=== PATIENT | female | born 1975 ===

== ENCOUNTER 2017-03-21 09:55 | Outpatient (CLI) | payer OTHER ==
--- NOTE | 2017-03-21 14:36 | Mammography Report ---
BILATERAL DIGITAL SCREENING MAMMOGRAM with CAD : 03/21/17 09:55:00 CLINICAL: Routine screening. COMPARISON:02/15/16 FINDINGS: The breasts are heterogeneously dense, which may obscure small masses. No mass, architectural distortion or suspicious calcifications. IMPRESSION: No mammographic evidence of malignancy. BI-RADS CATEGORY: 2 -- Benign RECOMMENDATION: Routine mammographic screening in one year. COMMENT: Patient follow-up letters are generated by our [employer] application.
== END 2017-03-21 09:56 | disposition home or self-care (01) ==
LOC: SPVWC 09:55
PROVIDERS: ATTEND Family Medicine
DX: Z12.31 Encounter for screening mammogram for malignant neoplasm of breast (principal)
CPT/HCPCS: 77067; G0202

== ENCOUNTER 2017-07-26 09:06 | Outpatient (CLI) | payer OTHER ==
--- NOTE | 2017-07-26 13:30 | Ultrasound Report ---
TRANSABDOMINAL AND TRANSVAGINAL PELVIC ULTRASOUND: 07/26/17 09:06:00 CLINICAL: Pelvic pain and dysmenorrhea. FINDINGS: Transabdominal and transvaginal pelvic ultrasound demonstrated a normal size uterus with normal contour and overall echogenicity. The uterus measures 9.5 x 3.4 x 6.3 cm. No uterine fibroid or mass. A 5 mm left myometrial cyst in the uterine body. Normal proliferative endometrium measuring 6.0 mm AP thickness. Normal ovaries. The right ovary measures 3.8 x 2.4 x 4.1cm. The left ovary measures 3.7 x 2.0 x 2.8cm. No adnexal mass. No free fluid. Normal urinary bladder. IMPRESSION: A 5 mm left myometrial cyst but otherwise normal exam. No other signs to suggest uterine adenomyosis.
--- NOTE | 2017-07-26 13:43 | Ultrasound Report ---
ABDOMINAL ULTRASOUND: 07/26/17 09:06:00 CLINICAL: Abdominal pain. FINDINGS: High-resolution ultrasound demonstrated a normal size liver with normal contour and echogenicity. No liver mass. Normal hepatic vasculature and inferior vena cava. Normal gallbladder and bile ducts. The gallbladder wall measures 2.0 mm thick. The common bile duct measures 6.0 mm diameter. The pancreas was well imaged and normal. Normal abdominal aorta. A normal spleen measures 9.5cm. normal size kidneys with normal renal contours and echogenicity. The right kidney measures 11.5 x 3.6 x 5.5cm. Mild dilatation of the right renal collecting system and proximal ureter. However, no ureteral calculus is identified. The left kidney measures 11.2 x 4.8 x 4.1cm. Normal nondilated left renal collecting system nd ureter. No renal mass or calculus. No ascites or mass. IMPRESSION: Mild dilatation of the right renal collecting system and proximal ureter with an uncertain etiology. The rest of the study is normal.
== END 2017-07-26 09:07 | disposition home or self-care (01) ==
LOC: SPVWC 09:06
PROVIDERS: ATTEND Family Medicine
DX: N85.8 Other specified noninflammatory disorders of uterus (principal); N28.82 Megaloureter; R10.9 Unspecified abdominal pain; R11.0 Nausea
CPT/HCPCS: 76700; 76830; 76856

== ENCOUNTER 2019-08-12 11:01 | Outpatient (CLI) | payer OTHER ==
--- NOTE | 2019-08-12 15:29 | Mammography Report ---
DIGITAL SCREENING MAMMOGRAM WITH CAD, 08/12/2019 INDICATION: Routine screening mammography. TECHNIQUE: Digital bilateral 2D mammography was obtained in the craniocaudal and mediolateral obliq ue projections. This examination was interpreted with the benefit of Computer-Aided Detection analysi s. COMPARISON: 07/01/2018 FINDINGS: Breast Density: The breasts are heterogeneously dense, which may obscure small masses. There is no evidence of dominant mass, suspicious calcifications or architectural distortion in eithe r breast. Scattered bilateral benign calcifications. IMPRESSION: No mammographic evidence of malignancy. Follow up recommendation: Routine yearly BI-RADS Category 2: Benign. A "normal" or negative report should not discourage follow up or biopsy of a clinically significant f inding. A written summary of these findings will be mailed to the patient. The patient will be entered into a mammography reporting system which will generate a reminder letter for the patient's next appointmen t at the appropriate interval. [employer] recommends yearly mammograms starting at age 40 and continuing as l estefanía as a woman is in good health. Breast MRI is recommended for women with an approximate 20-25% or greater lifetime risk of breast cancer, including women with a strong family history of breast or ova neil cancer or who have been treated for Hodgkin's disease. Signer Name: Adam Matson MD Signed: 08/12/2019 3:25 PM Workstation Name: [id number]
== END 2019-08-12 11:02 | disposition home or self-care (01) ==
LOC: SPVWC 11:01
PROVIDERS: ATTEND Family Medicine
DX: Z12.31 Encounter for screening mammogram for malignant neoplasm of breast (principal)
CPT/HCPCS: 77067